=== PATIENT | male | born 1955 ===

== ENCOUNTER 2023-04-17 19:39 | Emergency (ER) | payer MEDICARE, MEDICAID ==
[~2023-04-17] VITALS: Ht 170.1 cm; Wt 94.8 kg
[2023-04-17 20:14] LABS: BASO % 1.1 % (0.0-1.0); EOS # 0.1 10*3/uL (0.0-0.4); EOS % 2.4 % (1.0-4.0); HEMATOCRIT 42.3 % (42.0-52.0); LYMPH # 1.6 10*3/uL (1.3-4.4); LYMPH % 43.5 % (27.0-41.0); MEAN CELL VOLUME 90.6 fl (80.0-94.0); MEAN CORPUSCULAR HGB 28.3 pg (27.0-31.0); MEAN CORPUSCULAR HGB CONC 31.2 g/dl (33.0-37.0); MEAN PLATELET VOLUME 9.3 fl (9.6-12.3); MONO # 0.4 10*3/uL (0.1-1.0); NEUT # 1.5 10*3/uL (2.3-7.9); NEUT % 40.7 % (47.0-73.0); PLATELET COUNT AUTOMATED 215 10*3/uL (130-400); RED BLOOD COUNT 4.67 10*6/uL (4.50-5.90); RED CELL DISTRI WIDTH 13.4 % (0-14.5); WHITE BLOOD COUNT 3.7 10*3/uL (4.8-10.8)
[2023-04-17 20:35] LABS: ALKALINE PHOSPHATASE 69 U/L (46-116); BUN 13 mg/dl (9-23); CHLORIDE 102 mmol/L (98-107); POTASSIUM 3.8 mmol/L (3.4-5.1); TOTAL PROTEIN 6.5 gm/dL (6.0-8.0)
[2023-04-17 20:39] LABS: SGPT/ALT < 7 U/L (5-49)
== END 2023-04-18 05:56 | disposition left against medical advice (07) ==
LOC: ED 19:39
PROVIDERS: Internal Medicine
DX: J98.4 Other disorders of lung (principal); G20.A1 Parkinson's disease without dyskinesia, without mention of fluctuations; D72.819 Decreased white blood cell count, unspecified; Z91.018 Allergy to other foods

== ENCOUNTER 2024-10-24 20:52 | Emergency (ER) | payer OTHER ==
[~2024-10-24] VITALS: Ht 180.3 cm; Wt 90.7 kg
[~2024-10-24 20:52] MED LIST: 'KLONOPIN0.5 MG PO; BENZTROPINE MESY1 MG PO; CARBIDOPA-LEVO1 EAC7 PO; Clopidogrel75 MG PO; FAMOTIDINE40 MG PO; FUROSEMIDE20 M1 PO; FUROSEMIDE40 MG PO; LANTUS100 UNIT/1 SC; LEXAPRO10 MG PO; LISINOPRIL5 MG PO; LOPRESSOR25 MG PO; MELOXICAM15 MG PO; POTASSIUM20 MEQ/16 PO; PROTONIX40 M2 PO; SIMVASTATIN20 MG PO; TERAZOSIN5 MG PO; VITAMIN B-121000 MC2 PO; [UNRECOGNIZED DRUG - CODE] PO
[2024-10-24 21:20] LABS: BASO # 0.0 10*3/uL (0.0-0.1); BASO % 0.6 % (0.0-1.0); EOS # 0.0 10*3/uL (0.0-0.4); EOS % 0.8 % (1.0-4.0); MEAN CELL VOLUME 88.3 fl (80.0-94.0); MEAN CORPUSCULAR HGB 28.3 pg (27.0-31.0); MEAN PLATELET VOLUME 10.1 fl (9.6-12.3); MONO # 0.3 10*3/uL (0.1-1.0); MONO % 9.0 % (3.0-9.0); NEUT # 2.5 10*3/uL (2.3-7.9); NEUT % 69.6 % (47.0-73.0); NUCLEATED RED BLOOD CELL 0.0 % (0.0-0.0); NUCLEATED RED BLOOD CELL 0.0 10*3/uL (0.0-0.0); PLATELET COUNT AUTOMATED 183 10*3/uL (130-400); RED CELL DISTRI WIDTH 14.0 % (0-14.5)
[2024-10-24] MEDS ORDERED: SODIUM CHLORIDE 0.9% 1,000 ML IV ONE ×2 (21:20→22:10)
[2024-10-24 21:41] LABS: BUN 28.0 mg/dl (9-23); CPK 125.0 U/L (34-171)
[2024-10-24] MEDS ORDERED: CARBIDOPA-LEVO1 EAC7 PO (23:25)
[2024-10-24] MEDS ORDERED: FUROSEMIDE20 M1 PO (23:28)
[2024-10-24] MEDS ORDERED: PAIN RELIEVER325 MG PO (23:31)
[2024-10-24] MEDS ORDERED: CALMOSEPTINE OI71 GM T (23:32)
[2024-10-24] MEDS ORDERED: FEVER REDUCER650 MG R (23:32)
[2024-10-24] MEDS ORDERED: SENNA-S 8.6-501 EACH PO (23:33)
[2024-10-24] MEDS ORDERED: Ondansetron8 MG PO (23:33)
[2024-10-24 23:59] LABS: BILIRUBIN Negative (Negative); BLOOD Negative (Negative); CLARITY Clear (Clear); COLOR Yellow (Yellow); KETONE Trace (Negative); LEUKO ESTERASE Negative (Negative); NITRITE Negative (Negative); PH 5.0 (4.5-8.0); SPECIFIC GRAVITY 1.010 (1.001-1.030); UROBILINOGEN 1.0 E.U./dl (0.0-1.0)
[2024-10-25 00:24] LABS: BACTERIA TRACE
== END 2024-10-25 02:21 ==
LOC: ED 20:52
PROVIDERS: Internal Medicine
DX: I12.9 Hypertensive chronic kidney disease with stage 1 through stage 4 chronic kidney disease, or unspecified chronic kidney disease (principal); E11.22 Type 2 diabetes mellitus with diabetic chronic kidney disease; N18.4 Chronic kidney disease, stage 4 (severe); D63.1 Anemia in chronic kidney disease; R29.6 Repeated falls; K21.9 Gastro-esophageal reflux disease without esophagitis; F32.A Depression, unspecified; F41.9 Anxiety disorder, unspecified; G20.A1 Parkinson's disease without dyskinesia, without mention of fluctuations; Z79.4 Long term (current) use of insulin; Z79.899 Other long term (current) drug therapy